=== PATIENT | male | born 1980 | race African-American/Black ===

== ENCOUNTER 2023-06-08 20:46 | Emergency (ER) | payer SELFPAY ==
[2023-06-08] MEDS ORDERED: Acetaminophen 500 MG TAB ONE (21:18)
[2023-06-08] MEDS ORDERED: Ketorolac Tromethamine 30 MG/ML VIAL ONE (21:18)
== END 2023-06-08 22:40 | disposition home or self-care (01) ==
LOC: ERS 20:46
DX: S02.32XA Fracture of orbital floor, left side, initial encounter for closed fracture (principal); S01.511A Laceration without foreign body of lip, initial encounter; F17.290 Nicotine dependence, other tobacco product, uncomplicated; Y04.8XXA Assault by other bodily force, initial encounter
CPT/HCPCS: 70450; 70486; 96372; J1885

== ENCOUNTER 2023-07-11 18:07 | Emergency (ER) | payer OTHER, SELFPAY ==
[2023-07-11] MEDS ORDERED: Ketorolac Tromethamine 30 MG/ML VIAL ONE (19:16)
== END 2023-07-11 20:24 | disposition home or self-care (01) ==
LOC: ERS 18:07
DX: S62.316A Displaced fracture of base of fifth metacarpal bone, right hand, initial encounter for closed fracture (principal); S80.211A Abrasion, right knee, initial encounter; F17.210 Nicotine dependence, cigarettes, uncomplicated; V26.49XA Other motorcycle driver injured in collision with other nonmotor vehicle in traffic accident, initial encounter
CPT/HCPCS: 29125; 96372; J1885

== ENCOUNTER 2023-10-01 19:00 | Emergency (ER) | payer BC, OTHER ==
[2023-10-01] MEDS ORDERED: Dexamethasone 10 MG/ML VIAL ONE (19:36)
[2023-10-01 20:35] LABS: SARS-CoV-2 NAA Rapid Test Not Detected (NotDetected)
== END 2023-10-01 20:08 | disposition home or self-care (01) ==
LOC: ERS 19:00
DX: J06.9 Acute upper respiratory infection, unspecified (principal); F17.210 Nicotine dependence, cigarettes, uncomplicated
CPT/HCPCS: 99283; J1100